=== PATIENT | female | born 1940 | race Caucasian/White ===

== ENCOUNTER 2017-05-29 15:27 | Outpatient (CLI) | payer MEDICARE | END 2017-05-29 15:28 | disposition home or self-care (01) | LOC: BICMRI 15:27 | PROVIDERS: ATTEND Psychiatry & Neurology Neurology | DX: M47.892 Other spondylosis, cervical region (principal); R60.0 Localized edema | CPT/HCPCS: 72141 ==

== ENCOUNTER 2017-08-07 07:28 | Outpatient (CLI) | payer MEDICARE | END 2017-08-07 07:29 | disposition home or self-care (01) | LOC: BICMRI 07:28 | PROVIDERS: ATTEND Anesthesiology Pain Medicine | DX: M54.14 Radiculopathy, thoracic region (principal); S29.8XXA Other specified injuries of thorax, initial encounter | CPT/HCPCS: 72146 ==

== ENCOUNTER 2018-03-24 14:47 | Outpatient (CLI) | payer MEDICARE ==
--- NOTE | 2018-03-24 16:43 | RAD ---
LUMBAR SPINE THREE VIEWS FLEXION AND EXTENSION. 03/24/18 HISTORY: Low back pain. COMPARISON: 04/28/16 FINDINGS: Anterior wedging of L1 with loss of height anteriorly by approximately 25% has developed since the pr ior study. Chronic compression of the L2 inferior end plate and mild chronic compression of the L3 cash perior end plate appears stable. There is very little motion from flexion to extension. No abnormal translational motion. There is min imal retrolisthesis at the L2-3 level and L3-4 level. Gas disc phenomenon at the L3-4 level. Prominen t osteophytosis throughout the vertebral bodies and facets. Calcification over the arterial structur es. Osseous structures are demineralized. IMPRESSION: Interval development of partial anterior wedge compression of the L1 vertebral body. Prominent multilevel degenerative changes throughout the lumbar spine, not significantly different th an the 03/24/18 exam. Osteoporosis. Atherosclerosis. POS: SHIRLEY
--- NOTE | 2018-03-24 16:59 | MRI ---
MRI LUMBAR SPINE NONCONTRAST: DATE: 03/24/18 HISTORY: 77-year-old female with chronic low back pain. COMPARISON: No prior lumbar spine MRIs. FINDINGS: There is a transitional level at the lumbosacral junction. Review of the MRI of the thoracic spine of 08/07/17 and cervical spine MRI of 05/29/17 demonstrate that, counting from the top of the cervical spine, the level of the old mild compression fracture near the thoracolumbar junction is T12. Consequ ently, the patient will be considered to have a partially sacralized L5. The L5 left transverse proce ss is fused with left S1 sacral ala (the periphery of the right L5 transverse process was not include d on the sagittal images). There is exaggerated lordosis of the lower lumbar spine, and exaggerated k yphosis of the thoracolumbar junction. The compression fracture of T12 results in approximately 20-40 % loss of height anteriorly, and no significant loss of height posteriorly. There is mild retropulsio n of the posterior superior end plate, technically making this an old burst fracture. Despite the ret ropulsion, there is no central spinal canal stenosis at that level or any other level. The spinal can al and thecal sac are generous in caliber throughout all levels. There is mild lateral curvature. The re is multilevel degenerative disc disease, worst at L1-2, with severe anterior disc space narrowing and anterior end plate irregularity. Different degrees of milder degenerative disc disease at other l evels. Degenerative retrolisthesis of L1 on L2, and L2 on L3. There are multilevel high grade degener ative facet changes throughout the mid and lower lumbar spine. Multilevel mild and moderate neural fo raminal stenosis. The worst level is left L2-3 (moderate to severe). Conus medullaris terminates at L 1-2. IMPRESSION: 1. Advanced lumbar spondylosis, with multilevel degenerative disc disease of varying degrees, and hi gh grade facet osteoarthrosis at the mid and lower levels. 2. Transitional level: partially sacralized L5. 3. No central spinal canal stenosis at any level. 4. Multiple levels of moderate neural foraminal stenosis, worst on the left at L2-3 (moderate-severe ). 5. Exaggerated lordosis of lower lumbar spine, and compensatory kyphosis of thoracolumbar junction. 6. Mild old burst fracture of T12. BROOK Taveras POS: SHIRLEY
== END 2018-03-24 14:48 | disposition home or self-care (01) ==
LOC: MRI 14:47
PROVIDERS: ATTEND Anesthesiology Pain Medicine
DX: M54.81 Occipital neuralgia (principal); M48.8X6 Other specified spondylopathies, lumbar region; M47.816 Spondylosis without myelopathy or radiculopathy, lumbar region; M81.0 Age-related osteoporosis without current pathological fracture; I70.90 Unspecified atherosclerosis; M51.36 Other intervertebral disc degeneration, lumbar region; M40.46 Postural lordosis, lumbar region; M40.295 Other kyphosis, thoracolumbar region; Z87.81 Personal history of (healed) traumatic fracture
CPT/HCPCS: 72100; 72148

== ENCOUNTER 2018-04-14 09:49 | Outpatient (CLI) | payer MEDICARE ==
--- NOTE | 2018-04-14 11:40 | RAD ---
LUMBAR SPINE RADIOGRAPHS FOUR VIEWS: Date: 04-14-18 Provided Clinical History: Back pain. FINDINGS: Comparison is made with study dated 03-24-18. Lumbar alignment appears unchanged. There is no evidence for abnormal translational motion with flexi on and extension. Vertebral body heights appear unchanged. Multilevel degenerative changes are again seen. Surgical clips overlie the abdomen. IMPRESSION: Stable exam. POS: [facility]
--- NOTE | 2018-04-14 12:06 | RAD ---
CERVICAL SPINE 5 VIEWS: Date: 04/14/18 COMPARISON: 04/28/16. HISTORY: Limited motion with pain. FINDINGS: There is multilevel mid cervical spine facet and uncovertebral osteophyte formation, left greater doreen n right, similar when compared to the prior examination. The lateral examination demonstrates disc space narrowing with degenerative end plate change at C3-4, C4-5, and C5-6, similar when compared to prior imaging. At C3-4, C4-5, and C5-6, there is anterior and posterior osteophyte formation, also unchanged. No pre vertebral soft tissue swelling. The bones appear demineralized, similar when compared to prior imagin g. On the neutral lateral exam, there is minimal retrolisthesis at C4-5 in the 2.0 mm range, stable. Thi s is similar in flexion and extension views. The bones appear demineralized. Open-mouth odontoid view is suboptimal secondary to osteopenia and obscuration by overlying osseous s tructures. IMPRESSION: Findings suggesting stable multilevel prominent degenerative change, most significantly involving C4- 5 and C5-6 as above. POS: SHIRLEY
== END 2018-04-14 09:50 | disposition home or self-care (01) ==
LOC: TBSIIMAG 09:49
PROVIDERS: ATTEND Surgery
DX: M47.22 Other spondylosis with radiculopathy, cervical region (principal); M50.10 Cervical disc disorder with radiculopathy, unspecified cervical region
CPT/HCPCS: 72050; 72110

== ENCOUNTER 2019-12-15 09:16 | Outpatient (CLI) | payer MEDICARE ==
--- NOTE | 2019-12-15 11:10 | CT ---
EXAM: CTA abdomen and pelvis HISTORY: Abdominal pain and spasm COMPARISON: 08/20/2016 TECHNIQUE: Multiple contiguous axial images were obtained a CTA of the abdomen and pelvis without and with contrast. Sagittal and coronal 3-D MIP reformats were performed. FINDINGS: LIVER: Unremarkable. GALLBLADDER: Removed. KIDNEYS: 2.0 cm right renal cyst. Other subcentimeter hypodensities in both kidneys likely represent smaller cysts.. SPLEEN: Spleen is enlarged measuring 14.0 cm in size. Multiple calcified granulomas are seen in the s pleen.. PANCREAS: Unremarkable. BOWEL: Unremarkable. PELVIS: The reproductive organs are unremarkable. No pelvic adenopathy. RETROPERITONEUM: No lymphadenopathy ABDOMINAL WALL SOFT TISSUES: There is a lipoma in the anterior right thigh musculature. BONES: Osteopenia. Degenerative changes in the spine. ABDOMINAL AORTA: Normal caliber without evidence of dissection or aneurysmal dilatation. Diffuse athe rosclerosis. CELIAC TRUNK: Patent SMA: Patent VICENTA: Patent RENAL ARTERIES: A single renal arteries on the right renal arteries on the left. No significant ather osclerotic disease of the renal arteries is seen. The common iliac arteries, internal iliac arteries and external iliac arteries are patent without foc al atherosclerotic disease. A small amount of calcified plaque is seen in the right internal iliac artery. IMPRESSION: 1. Splenomegaly 2. Renal cysts
== END 2019-12-15 09:17 | disposition home or self-care (01) ==
LOC: BICCT 09:16
PROVIDERS: ATTEND Nurse Practitioner Family
DX: D69.6 Thrombocytopenia, unspecified (principal); K31.89 Other diseases of stomach and duodenum; R10.9 Unspecified abdominal pain; N28.1 Cyst of kidney, acquired; R16.1 Splenomegaly, not elsewhere classified
CPT/HCPCS: 74174; 82565

== ENCOUNTER 2019-12-28 09:45 | Outpatient (CLI) | payer MEDICARE ==
--- NOTE | 2019-12-28 12:17 | BD ---
BONE DENSITOMETRY USING DEXA: Date: 12/28/2019 HISTORY: Age-related osteoporosis. FINDINGS: Lumbar Spine: BMD (g/cm2) L1 0.433 T-Score: -5.1 Z-Score: -2.7 L2 0.567 T-Score: -4.2 Z-Score: -1.5 L3 0.788 T-Score: -2.7 Z-Score: 0.1 L4 0.877 T-Score: -1.7 Z-Score: 1.2 L1-L4 0.664 T-Score: -3.5 Z-Score: -0.8 Femoral Neck: 0.523 T-Score: -2.9 Z-Score: -0.6 Total Femur: 0.582 T-Score: -3.0 Z-Score: -0.9 IMPRESSION: Osteoporosis. POS: AH
== END 2019-12-28 09:46 | disposition home or self-care (01) ==
LOC: BICMAMMO 09:45
PROVIDERS: ATTEND Nurse Practitioner Family
DX: M81.0 Age-related osteoporosis without current pathological fracture (principal); M85.9 Disorder of bone density and structure, unspecified
CPT/HCPCS: 77080

== ENCOUNTER 2020-01-26 08:40 | Outpatient (CLI) | payer MEDICARE ==
--- NOTE | 2020-01-26 09:38 | CT ---
CT ABDOMEN WITH IV CONTRAST 01/26/2020 CLINICAL INFORMATION: Epigastric abdominal pain after eating. Bloating. COMPARISON: CTA abdomen on 12/15/[address] abdomen on 08/20/2016 Technique: Multiple contiguous axial CT images are obtained through the abdomen and pelvis with IV contrast. Cor onal reformatted images are provided. FINDINGS: Lower Chest: Linear scarring medial right lung base is again seen. Lung bases are otherwise clear. Vessels: Vascular calcifications are seen in the abdominal aorta. Abdomen: Portal vein:Main portal vein is dilated measuring 1.8 cm. Gallbladder: Surgically absent. Liver: within normal limits. Spleen: Multiple splenic granulomata. The spleen is enlarged in craniocaudal dimensions measuring 16 cm. The splenic vein is dilated, and there is suggestion of mild splenic varices. Pancreas: within normal limits. Adrenals: within normal limits. Kidneys: Right renal cyst is seen but smaller in size compared to study in 2017 and measures 1.9 cm x 1.1 cm. Subcentimeter too small to characterize hypodense lesion is seen in the superior pole left kidney. Bowel: Loops of small bowel are normal in caliber. Peritoneum: No ascites or free air; no fluid collection. Mesentery and Retroperitoneum: No enlarged mesenteric or retroperitoneal lymph nodes. Abdominal Wall: within normal limits. Bones: Stable height loss involving a compression fracture T12 vertebral body with prominent degenera tive changes seen within the lumbar spine greatest at the L1-2 and L2-3 levels with prominent loss of intervertebral disc space height anteriorly at the L1-2 level with prominent osteophytes and exagg erated kyphosis of the spine at this level. IMPRESSION: 1. 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 2. Right renal cyst.
[2020-01-26] MEDS ORDERED: Iopamidol 370 76% 100 ML VIAL ONE (13:41)
== END 2020-01-26 08:41 | disposition home or self-care (01) ==
LOC: BICCT 08:40
PROVIDERS: ATTEND Internal Medicine Gastroenterology
DX: R10.13 Epigastric pain (principal); R16.1 Splenomegaly, not elsewhere classified; I83.90 Asymptomatic varicose veins of unspecified lower extremity; N28.1 Cyst of kidney, acquired
CPT/HCPCS: 74160; 82565; Q9967

== ENCOUNTER 2020-08-02 09:05 | Outpatient (CLI) | payer MEDICARE | END 2020-08-02 09:06 | disposition home or self-care (01) | LOC: ULT 09:05 | PROVIDERS: ATTEND Internal Medicine Hematology & Oncology | DX: R16.1 Splenomegaly, not elsewhere classified (principal) | CPT/HCPCS: 93975 ==

== ENCOUNTER 2023-01-19 09:51 | Outpatient (CLI) | payer MEDICARE ==
[2023-01-19 12:41] LABS: #Basophils 0.1 10x3/uL (0.0-0.2); #Eosinphils 0.1 10x3/uL (0.0-0.5); #Monocytes 0.5 10x3/uL (0.0-1.1); #Neutrophils 3.4 10x3/uL (1.5-8.4); %Basophils 1.1 % (0.0-2.0); %Eosinophils 1.1 % (0.0-6.0); %Lymphocytes 27.7 % (18.0-47.0); %Monocytes 8.3 % (0.0-10.0); %Neutrophils 61.6 % (40.0-75.0); Hematocrit 41.7 % (34.9-44.5); Hemoglobin 13.6 g/dL (12.0-15.5); Mean Corpuscular HGB CONC 32.6 g/dL (32.0-36.0); Mean Corpuscular Hemoglobin 28.2 pg (27.0-33.0); Mean Corpuscular Volume 86.5 fl (81.6-98.3); Platelet Count 139 10x3/uL (150-450); RBC Distribution Width 13.9 % (11.5-14.5); Red Blood Cell (RBC) Count 4.82 10x6/uL (3.90-5.03); White Blood Cell (WBC) Count 5.5 10x3/uL (3.5-10.5)
[2023-01-19 13:07] LABS: Anion Gap 15 mmol/L (10-20); BUN (Urea Nitrogen) 23 mg/dL (9.8-20.1); Calc. Creatinine Clearance 0 mL/min (70-130); Calcium 9.1 mg/dL (7.8-10.44); Carbon Dioxide 26 mmol/L (23-31); Chloride 104 mmol/L (98-107); Estimated GFR 66; Glucose 82 mg/dL (83-110); Potassium 4.5 mmol/L (3.5-5.1); Sodium 140 mmol/L (136-145)
== END 2023-01-19 09:52 | disposition home or self-care (01) ==
LOC: LABBT 09:51
PROVIDERS: ATTEND Orthopaedic Surgery
DX: Z01.818 Encounter for other preprocedural examination (principal); M19.012 Primary osteoarthritis, left shoulder
CPT/HCPCS: 80048; 85025; 93005; 93010

== ENCOUNTER 2023-01-22 06:33 | Day surgery (SDC) | payer MEDICARE ==
[2023-01-19 11:28] VITALS: BMI 18.8
[2023-01-22] MEDS ORDERED: Ropivacaine 0.5% HCl/PF (150 MG/30 ML VIAL) ONE (07:34)
[2023-01-22] MEDS ORDERED: Midazolam HCl 2 mg/2 ml Vial ONE (07:36)
[2023-01-22] MEDS ORDERED: fentaNYL 50 mcg/mL 1 mL Vial ONE (07:36)
[2023-01-22] MEDS ORDERED: Sodium Chloride 0.9% 100 ML ONE ×2 (08:07→09:24)
[2023-01-22] MEDS ORDERED: Tranexamic Acid 1,000 MG/10 ML VIAL ONE (08:07)
[2023-01-22] MEDS ORDERED: Vancomycin 1 GM/200 ML (FROZEN) BAG ONE ×2 (08:08→08:22)
[2023-01-22] MEDS ORDERED: fentaNYL 50 mcg/mL 1 mL Vial SLOW IVP PRN (09:23)
[2023-01-22] MEDS ORDERED: CEFAZOLIN 2 GM VIAL ONE (09:24)
[2023-01-22] MEDS ORDERED: Zolpidem Tartrate 5 MG TAB PO PRN (09:30)
[2023-01-22] MEDS ORDERED: Ondansetron PF 4 MG/2 ML Vial IVP PRN (09:30)
[2023-01-22] MEDS ORDERED: Ropivacaine 0.2% 550 ML 550 ML NERVE BLCK SCH (09:30)
[2023-01-22] MEDS ORDERED: Promethazine HCl 25 MG/ML VIAL IM PRN (09:30)
[2023-01-22] MEDS ORDERED: Ondansetron PF 4 MG/2 ML Vial ONE ×2 (09:37→09:40)
[2023-01-22] MEDS ORDERED: PROPOFOL 20 ML ONE (09:37)
[2023-01-22] MEDS ORDERED: Dexamethasone 20 MG/5 ML VIAL ONE ×2 (09:37→09:40)
[2023-01-22] MEDS ORDERED: Rocuronium Bromide 10 MG/ML (10ML VIAL) ONE ×2 (09:37→09:40)
[2023-01-22] MEDS ORDERED: Lidocaine 1% PF 5 ML VIAL ONE ×2 (09:37→09:40)
[2023-01-22] MEDS ORDERED: fentaNYL PF 100 MCG/2 ML SYRINGE ONE (09:37)
[2023-01-22] MEDS ORDERED: NEOSTIGMINE 3 MG/3 ML SYR 3 MG/3 ML SYRINGE ONE ×2 (09:40→11:01)
[2023-01-22] MEDS ORDERED: Glycopyrrolate 0.2 MG/ML 5 ML SYRINGE ONE ×2 (09:40→11:01)
[2023-01-22] MEDS ORDERED: PROPOFOL 200 MG/20 ML VIAL ONE (09:40)
[2023-01-22] MEDS ORDERED: Phenylephrine 40 MG/NS 250 ML 250 ML ONE (09:55)
[2023-01-22] MEDS ORDERED: SUGAMMADEX SODIUM 200 MG/2 ML VIAL ONE (11:14)
== END 2023-01-22 14:58 | disposition home or self-care (01) ==
LOC: SDC 06:33
PROVIDERS: ATTEND Orthopaedic Surgery
PROC: 0RPK0JZ Removal of Synthetic Substitute from Left Shoulder Joint, Open Approach (ICD-10-PCS; principal; 2023-01-22)
PROC: 0RRK0JZ Replacement of Left Shoulder Joint with Synthetic Substitute, Open Approach (ICD-10-PCS; 2023-01-22)
DX: M19.012 Primary osteoarthritis, left shoulder (principal); E89.0 Postprocedural hypothyroidism; Z90.89 Acquired absence of other organs; Z90.49 Acquired absence of other specified parts of digestive tract; Z85.850 Personal history of malignant neoplasm of thyroid; Z79.890 Hormone replacement therapy; Z79.899 Other long term (current) drug therapy
CPT/HCPCS: 23472; A4306; C1713 ×5; C1776 ×3; J3010; J3370; J1100; J2250; J2405; J2704; J2795; J3490

== ENCOUNTER 2023-12-17 11:29 | Outpatient (CLI) | payer MEDICARE ==
[2023-12-17 12:51] LABS: #Basophils 0.04 10x3/uL (0.0-0.2); %Basophils 0.6 % (0.0-1.0); %Eosinophils 0.7 % (0.0-10.0); %Lymphocytes 19.8 % (21.0-51.0); %Monocytes 9.7 % (0.0-10.0); %Neutrophils 69.1 % (42.0-75.0); Hematocrit 43.1 % (36.0-47.0); Hemoglobin 13.2 g/dL (12.0-16.0); Mean Corpuscular HGB CONC 30.6 g/dL (32.0-36.0); Mean Corpuscular Hemoglobin 26.6 pg (27.0-31.0); Mean Corpuscular Volume 86.9 fL (78.0-98.0); Mean Platelet Volume 12.5 fL (7.4-10.4); Platelet Count 150 10x3/uL (130-400); RBC Distribution Width 14.6 % (11.5-14.5); Red Blood Cell (RBC) Count 4.96 mill/uL (4.20-5.40)
[2023-12-17 13:04] LABS: INR-International Normal Ratio 1.1; Prothrombin Time 14.1 sec (12.0-14.7)
[2023-12-17 13:05] LABS: Anion Gap 12 mmol/L (10-20); BUN (Urea Nitrogen) 19 mg/dL (9.8-20.1); Calc. Creatinine Clearance 0 mL/min (70-130); Carbon Dioxide 28 mmol/L (23-31); Chloride 104 mmol/L (98-107); Potassium 4.2 mmol/L (3.5-5.1); Sodium 140 mmol/L (136-145)
[2023-12-17 13:06] LABS: Estimated GFR 68; Glucose 84 mg/dL (83-110)
== END 2023-12-17 11:30 | disposition home or self-care (01) ==
LOC: LABBT 11:29
PROVIDERS: ATTEND Orthopaedic Surgery
DX: Z01.818 Encounter for other preprocedural examination (principal); M19.011 Primary osteoarthritis, right shoulder
CPT/HCPCS: 80048; 85025; 85610; 87081; 93005; 93010

== ENCOUNTER 2023-12-24 05:40 | Observation (INO) | payer MEDICARE ==
[2023-12-17 11:51] VITALS: BMI 18.8
[2023-12-24] MEDS ORDERED: Lidocaine 1% MPF 2 ML VIAL ONE (06:21)
[2023-12-24] MEDS ORDERED: Tranexamic Acid 1,000 MG/10 ML VIAL ONE (06:21)
[2023-12-24] MEDS ORDERED: Vancomycin (BATCH) 1.5 GM/300 ML BAG ONE ×2 (06:22→06:23)
[2023-12-24] MEDS ORDERED: Sodium Chloride 0.9% 100 ML ONE (06:22)
[2023-12-24] MEDS ORDERED: Vancomycin 1 GM/200 ML (FROZEN) BAG ONE (06:22)
[2023-12-24] MEDS ORDERED: CEFAZOLIN 2 GM VIAL ONE (06:22)
[2023-12-24] MEDS ORDERED: fentaNYL PF 100 MCG/2 ML SYRINGE ONE (06:31)
[2023-12-24] MEDS ORDERED: PROPOFOL 20 ML ONE (06:31)
[2023-12-24] MEDS ORDERED: Rocuronium Bromide 10 MG/ML (10ML VIAL) ONE (06:33)
[2023-12-24] MEDS ORDERED: Ondansetron PF 4 MG/2 ML Vial ONE (06:33)
[2023-12-24] MEDS ORDERED: Dexamethasone 4 mg/ml Vial ONE (06:33)
[2023-12-24] MEDS ORDERED: Phenylephrine 40 MG/NS 250 ML 250 ML ONE (06:38)
[2023-12-24] MEDS ORDERED: Zolpidem Tartrate 5 MG TAB PO PRN (07:30)
[2023-12-24] MEDS ORDERED: traMADol HCl 50 MG TAB PO PRN ×2 (07:30)
[2023-12-24] MEDS ORDERED: Lidocaine 1% (PF) 30 ML VIAL ONE (07:30)
[2023-12-24] MEDS ORDERED: HYDROcodone/Acetaminophen 10/325 mg Tablet PO PRN ×2 (07:30)
[2023-12-24] MEDS ORDERED: Ropivacaine 0.2% 550 ML 550 ML NERVE BLCK SCH (07:30)
[2023-12-24] MEDS ORDERED: Ondansetron PF 4 MG/2 ML Vial IVP PRN ×2 (07:30→09:34)
[2023-12-24] MEDS ORDERED: fentaNYL 50 mcg/mL 1 mL Vial SLOW IVP PRN (07:30)
[2023-12-24] MEDS ORDERED: Promethazine HCl 25 MG/ML VIAL IM PRN ×2 (07:30→08:28)
[2023-12-24] MEDS ORDERED: Ropivacaine 0.2% HCl/PF 20 ML ONE (07:31)
[2023-12-24] MEDS ORDERED: Ropivacaine 0.5% HCl/PF (150 MG/30 ML VIAL) ONE (07:31)
[2023-12-24] MEDS ORDERED: Ondansetron HCl/PF 4 MG/2 ML Vial IVP PRN (08:28)
[2023-12-24] MEDS ORDERED: SUGAMMADEX SODIUM 200 MG/2 ML VIAL ONE (08:57)
[2023-12-24] MEDS ORDERED: diphenhydrAMINE 50 MG CAP PO PRN (09:34)
[2023-12-24] MEDS ORDERED: Bisacodyl 10 MG SUPP PR PRN (09:34)
[2023-12-24] MEDS ORDERED: Ondansetron ODT 4 MG TAB PO PRN (09:34)
[2023-12-24] MEDS ORDERED: Milk Of Magnesia 30 ML UDCUP PO PRN (09:34)
[2023-12-24] MEDS: Famotidine 20 MG TAB PO SCH (11:47)
[2023-12-24] MEDS: Sodium Chloride 0.9% 1,000 ML IV SCH (12:18)
[2023-12-24] MEDS: Ketorolac Tromethamine 30 MG (1 mL) VIAL IVP SCH (12:18)
[2023-12-24] MEDS: CEFAZOLIN 2 GM in Sodium Chloride 0.9% 100 ML IVPB SCH (15:27)
[2023-12-24] MEDS: Acetaminophen 325 MG TAB PO PRN (20:07)
[2023-12-25] MEDS: Levothyroxine Sodium 100 MCG TAB PO SCH (06:45)
[2023-12-25 07:05] VITALS: TEMP 97.8
[2023-12-25 10:12] VITALS: BP 136/73
== END 2023-12-25 10:25 | disposition home or self-care (01) ==
LOC: SDC 05:40 → SURG A 11:36
PROVIDERS: ADMIT Orthopaedic Surgery; ATTEND Orthopaedic Surgery
PROC: 0RRJ0JZ Replacement of Right Shoulder Joint with Synthetic Substitute, Open Approach (ICD-10-PCS; principal; 2023-12-24)
PROC: 3E0T3BZ Introduction of Anesthetic Agent into Peripheral Nerves and Plexi, Percutaneous Approach (ICD-10-PCS; 2023-12-24)
DX: M19.011 Primary osteoarthritis, right shoulder (principal); M75.121 Complete rotator cuff tear or rupture of right shoulder, not specified as traumatic; M66.821 Spontaneous rupture of other tendons, right upper arm; E03.9 Hypothyroidism, unspecified; Z90.49 Acquired absence of other specified parts of digestive tract; Z90.89 Acquired absence of other organs; Z96.612 Presence of left artificial shoulder joint; Z88.8 Allergy status to other drugs, medicaments and biological substances; Z79.899 Other long term (current) drug therapy
CPT/HCPCS: 23472; 64416; 97110; 97116 ×2; A4306; C1713 ×4; C1776 ×4; J1100; J1885 ×2; J2405; J2704; J2795 ×3; J3370; J7030 ×2

== ENCOUNTER 2024-09-20 08:11 | Outpatient (CLI) | payer MEDICARE ==
[2024-09-20 08:51] LABS: Estimated GFR - POC 49.0
== END 2024-09-20 08:12 | disposition home or self-care (01) ==
LOC: SCSMRI 08:11
PROVIDERS: ATTEND Family Medicine
DX: G31.84 Mild cognitive impairment of uncertain or unknown etiology (principal); R93.0 Abnormal findings on diagnostic imaging of skull and head, not elsewhere classified
CPT/HCPCS: 36415; 70553; 76376; 82565